=== PATIENT | female | born 1970 | race Caucasian/White ===

== ENCOUNTER 2021-07-13 18:36 | Observation (INO) | payer BC ==
[~2021-07-13] VITALS: Ht 154.9 cm; Wt 58.1 kg
[2021-07-13 20:02] LABS: Hematocrit 39.9 % (33.0-51.0); Hemoglobin 13.7 g/dL (11.5-16.0); Mean Corpuscular HGB 34.2 pg (26.0-34.0); Mean Corpuscular HGB Conc 34.3 g/dL (31.5-36.5); Mean Corpuscular Volume 100 fL (80-100); Mean Platelet Volume 10.7 fL (9.1-12.4); Platelet Count 162 K/mm3 (150-400); RDW Coefficient Variation 12.5 % (11.7-14.2); RDW Standard Deviation 46.1 fL (35.1-46.3); Red Blood Cell Count 4.01 M/mm3 (3.80-5.20); White Blood Cell Count 14.26 K/mm3 (4.00-11.30)
[2021-07-13 20:25] LABS: Alanine Aminotransfer (ALT/SGP 36 U/L (12-78); Albumin, Blood 3.6 g/dL (3.4-5.0); Alk Phos 77 U/L (50-136); Anion Gap 14 mmol/L (6-16); Aspartate Aminotrans (AST/SGOT 21 U/L (12-37); Bilirubin, Total 1.1 mg/dL (0.1-1.0); Blood Urea Nitrogen 15 mg/dL (8-24); Bun/Creatinine Ratio 30.3 (12.0-20.0); CO2, Blood 23 mmol/L (21-32); Calcium, Blood 9.5 mg/dL (8.5-10.1); Chloride, Blood 97 mmol/L (98-108); Globulin, Blood 3.6 g/dL (2.2-4.0); Glomerular Filtration Rate >60 (60-); Glucose, Blood 101 mg/dL (70-99); Potassium, Blood 3.7 mmol/L (3.5-5.5); Sodium, Blood 134 mmol/L (136-145); Total Protein, Blood 7.2 g/dL (6.4-8.2)
[2021-07-13 20:59] LABS: Influenza A, PCR NEGATIVE (NEGATIVE); Influenza B, PCR NEGATIVE (NEGATIVE); Resp Syncytial Virus, PCR NEGATIVE (NEGATIVE); SARS-Cov-2 (COVID-19) PCR, MMC NEGATIVE (NEGATIVE)
[2021-07-14] MEDS ORDERED: ZYRTEC10 M2 PO (03:41)
--- NOTE | 2021-07-14 04:36 | NUR ---
ASSUMPTION OF CARE PT ARRIVED TO SURGICAL UNIT AT 0315 FROM ER, ASSISTED BY ONE SPD MANAGER. PT AMBULATED WITH SBA FROM ER GURNEY TO SURGICAL BED. PT IS A&O X4, ADMITTED FOR ACUTE APPENDICITIS, AWAITING SURGICAL CONSULT WITH DR. HEALY. ROOM AIR, LUNG SOUNDS CLEAR. BOWEL TONES PRESENT. NPO, GIVEN LEMON SWABS FOR REFRESHMENT. PT IS CONTINENT, CAN AMBULATE AD NARINDER IN ROOM, FOR SAFETY RECOMMEND SBA DUE TO ABD PAIN. PT REPORTS N/V/D X2 DAYS PRIOR TO ADMISSION. IV INFUSING D5 WITH 20mEQ POTASSIUM INTO LEFT AC. COVID NEGATIVE TEST IN ER. DENES SIG MEDICAL HX. SURGICAL HX INCLUDES BACK SURGERY IN 1981 FOR SCOLIOSIS. DAILY SMOKER, OCCASSIONAL DRINKER.
--- NOTE | 2021-07-14 11:48 | NUR ---
BROUGHT TO [facility] ADMISSION TO UNIT STARTED VSS. NEEDING IV. LUNGS CLEAR CHARTING STARTED
--- NOTE | 2021-07-14 12:26 | NUR ---
REC'D REPORT FROM JEISON HERNDON RN. PATIENT RESTING IN BED.
--- NOTE | 2021-07-14 13:00 | NUR ---
REPORT RECEIVED ON PT. PT ON ANOTHER UNIT.
--- NOTE | 2021-07-14 14:06 | NUR ---
PT ARRIVED TO THE ROOM AT 1400. SHE IS ALERT AND ORIENTED. SHE REPORTS HER PAIN IS MANAGED, SHE REPORTS SOME TIGHTNESS IN HER ABD. SHE DENIES NAUSEA. PT ON RA AT THIS TIME. WILL CONTUE TO MONITOR.
[2021-07-14] MEDS ORDERED: AMOX-CLAV 875-1 EAC1 PO (15:18)
[2021-07-14] MEDS ORDERED: OXYC5 PO (15:19)
--- NOTE | 2021-07-14 17:49 | NUR ---
DISCHARGE PT PROVIDED WITH WRITTEN AND VERBAL DISCHARGE INSTRUCTIONS; SHE AND HER S/O REPORTED UNDERSTANDING. PAIN MANAGED PRIOR TO DISCHARGE. PT TOLERATED PO, ABLE TO VOID AND AMBULATE BEFORE DISCHARGE. VSS AT TIME OF DISCHARGE. PT REQUESTED TO AMBULATE OUT WITHOUT ASSISTANCE.
--- NOTE | 2021-07-14 17:51 | NUR ---
IV REMOVED FROM RFA. CATHETER INTACT UPON REMOVAL.
--- NOTE | 2021-07-15 14:20 | NUR ---
07/15/21 1420 Xochitl Perales VERIFICATIONS: EDIT CHART.
== END 2021-07-14 17:30 | disposition home or self-care (01) ==
LOC: ER 18:36 → ERHOLD 18:37 → SURS 18:37
PROVIDERS: Emergency Medicine; Surgery; ADMIT Surgery
PROC: 0DTJ4ZZ Resection of Appendix, Percutaneous Endoscopic Approach (ICD-10-PCS; principal; 2021-07-14 12:30)
DX: K35.30 Acute appendicitis with localized peritonitis, without perforation or gangrene (principal); F17.210 Nicotine dependence, cigarettes, uncomplicated; Z20.822 Contact with and (suspected) exposure to COVID-19
CPT/HCPCS: 0241U; 80053; 85027; 96366; 96376; A9270; G0378; J0694; J1100; J1170; J1885; J2250; J2405; J2704; J3010; J7050; J7120

== ENCOUNTER → 2021-07-13 | Outpatient (CLI) | payer BC ==
[~2021-07-13] MED LIST: AMOX-CLAV 875-1 EAC1 PO; OXYC5 PO; ZYRTEC10 M2 PO
[2021-07-13 16:45] LABS: BASOPHILS ABSOLUTE AUTO 0.03 K/mm3 (0.00-0.23); BASOPHILS PERCENT AUTO 0 % (0-2); EOSINOPHILS ABSOLUTE AUTO 0.01 K/mm3 (0.00-0.68); EOSINOPHILS PERCENT AUTO 0 % (0-6); Hematocrit 41.8 % (33.0-51.0); Hemoglobin 14.4 g/dL (11.5-16.0); IMMATURE GRAN ABSOLUTE AUTO 0.07 K/mm3 (0.00-0.10); IMMATURE GRAN PERCENT AUTO 1 % (0-1); LYMPHOCYTES ABSOLUTE AUTO 1.18 K/mm3 (0.84-5.20); LYMPHOCYTES PERCENT AUTO 8 % (21-46); MONOCYTES ABSOLUTE AUTO 0.86 K/mm3 (0.16-1.47); MONOCYTES PERCENT AUTO 6 % (4-13); Mean Corpuscular HGB 34.1 pg (26.0-34.0); Mean Corpuscular HGB Conc 34.4 g/dL (31.5-36.5); Mean Corpuscular Volume 99 fL (80-100); Mean Platelet Volume 10.1 fL (9.1-12.4); NEUTROPHILS ABSOLUTE AUTO 12.71 K/mm3 (1.96-9.15); NEUTROPHILS PERCENT AUTO 86 % (41-73); Platelet Count 179 K/mm3 (150-400); RDW Coefficient Variation 12.8 % (11.7-14.2); RDW Standard Deviation 46.2 fL (35.1-46.3); Red Blood Cell Count 4.22 M/mm3 (3.80-5.20); White Blood Cell Count 14.86 K/mm3 (4.00-11.30)
== END | disposition home or self-care (01) ==
LOC: LAB SHORT 16:43
PROVIDERS: Physician Assistant
DX: R10.31 Right lower quadrant pain (principal)
CPT/HCPCS: 85025

== ENCOUNTER → 2021-11-24 | Outpatient (CLI) | payer BC ==
[2021-11-25 15:11] LABS: HPV 16 Negative (Negative); HPV 18 Negative (Negative); HPV OTHER HR TYPES Negative (Negative)
== END | disposition home or self-care (01) ==
LOC: LAB SHORT 14:47 → LAB 14:47
PROVIDERS: Obstetrics & Gynecology
DX: Z12.4 Encounter for screening for malignant neoplasm of cervix (principal)
CPT/HCPCS: 87624; G0123